=== PATIENT | female | born 1950 | race Caucasian/White ===

== ENCOUNTER → 2016-03-16 | Outpatient (CLI) | payer MEDICARE ==
[~2016-03-16] MED LIST: ASPI-586 PO; SIMV40TA2 PO
[2016-03-16 07:48] LABS: BASOPHILS % (AUTO) 0 % (0-2); EOSINOPHILS # (AUTO) 0.3 10^3uL; EOSINOPHILS % (AUTO) 3 % (0-4); LYMPHOCYTES # (AUTO) 2.9 X10^3; MEAN CORPUSCULAR HGB CONC 35.4 g/dL (31.0-37.0); MEAN CORPUSCULAR VOLUME 95 FL (80-100); MEAN PLATELET VOLUME 9.8 FL (6.0-9.5); MONOCYTES % (AUTO) 10 % (3-11); NEUTROPHILS # (AUTO) 6.2 X10^3; NEUTROPHILS % (AUTO) 59 % (51-67); PLATELET COUNT 305 10^3uL (150-450); WHITE BLOOD COUNT 10.47 10^3uL (4.0-11.0)
[2016-03-16 07:51] LABS: MEAN CORPUSCULAR HEMOGLOBIN 33.5 PG (26.0-34.0)
[2016-03-16 08:06] LABS: BILIRUBIN,URINE Negative (Negative); CLARITY,URINE Clear; COLOR,URINE Yellow; GLUCOSE, URINE (UA) Negative (Negative); LEUKOCYTE ESTERASE ,URINE Negative (Negative); UROBILINOGEN,URINE 0.2 mg/dL (0.2-1.0)
[2016-03-16 08:23] LABS: RBC,URINE 0-2 /HPF; URINE CENTRIFUGED VOLUME 12 mL
[2016-03-16 08:31] LABS: ALBUMIN 4.4 g/dL (3.4-5.0); CALCULATED IONIZED CALCIUM 4.1 mg/dL (3.8-4.6); TOTAL PROTEIN 7.6 g/dL (6.4-8.5)
--- NOTE | 2016-03-16 12:58 | Diagnostic Imaging Report ---
TECHNIQUE: Multiple real-time grayscale images were obtained over the carotid arteries in various projections bilaterally. Additional duplex Doppler and color Doppler images were also obtained. INDICATION: Right-sided endarterectomy in 2013. EXAMINATION: Ultrasound carotid Doppler 03/16/2016. FINDINGS: There are no significant areas of elevated velocities noted within the carotid ovaries with an IC to CC ratio of 0.9 on the right and 1.26 on the left. No hemodynamically significant stenosis is seen on either side. Scattered areas of plaque formation seen within the left proximal internal carotid artery. To a lesser degree, similar findings are noted within the external carotid ovary. Elevated velocity within the external carotid artery is noted with a velocity of 164 cm/s. IMPRESSION: No hemodynamically significant stenosis is appreciated. Dictated by: Dictated on workstation # [id number]
--- NOTE | 2016-03-16 14:16 | Diagnostic Imaging Report ---
INDICATION: Dyspnea. Two-view chest 03/16/2016. Comparison to 08/23/2014. FINDINGS: The heart and pulmonary vasculature appear stable. Mild emphysematous changes are seen within the lungs especially in the apices. Chronic-appearing changes noted in the lung bases. No infiltrates or effusions are seen. There is no pneumothorax. There is a vague density at the left lung base nonspecific perhaps caused by overlapping osseous and vascular structures. Short-term interval followup recommended. If this persists, CT imaging could help exclude a nodule. IMPRESSION: 1. Vague density left lung base. See above discussion and recommendations. Remaining changes appear chronic. Dictated by: Dictated on workstation # [id number]
--- NOTE | 2016-03-16 19:44 | Diagnostic Imaging Report ---
INDICATION: Screening mammogram dated 03/16/2016. COMPARISON: 07/24/2013 The current study was also evaluated with a Computer Aided Detection (CAD) system. FINDINGS: The breasts are composed of heterogeneously dense tissues which appear to be stable. There are a few bilateral calcifications which appear unchanged. There are no new suspicious microcalcifications appreciated. IMPRESSION: 1. Stable appearance of the breasts. No mammographic evidence for malignancy. Yearly screening is recommended. ACR BI-RADS Category 2: Benign findings. Result letter will be mailed to the patient. Note: At least 10% of breast cancer is not imaged by mammography. Dictated by: Dictated on workstation # [id number]
== END ==
LOC: RAD 07:34
PROVIDERS: ATTEND Family Medicine
DX: I49.8 Other specified cardiac arrhythmias (principal); Z12.31 Encounter for screening mammogram for malignant neoplasm of breast; R06.00 Dyspnea, unspecified; I70.311 Atherosclerosis of unspecified type of bypass graft(s) of the extremities with intermittent claudication, right leg; I65.21 Occlusion and stenosis of right carotid artery; R79.89 Other specified abnormal findings of blood chemistry; E78.2 Mixed hyperlipidemia; D50.8 Other iron deficiency anemias; N39.0 Urinary tract infection, site not specified; G72.0 Drug-induced myopathy; K71.2 Toxic liver disease with acute hepatitis; E03.4 Atrophy of thyroid (acquired); M81.0 Age-related osteoporosis without current pathological fracture; E13.65 Other specified diabetes mellitus with hyperglycemia; R91.8 Other nonspecific abnormal finding of lung field
CPT/HCPCS: 36415; 71020; 80053; 80061; 81003; 81015; 82360; 82550; 82977; 83036; 84436; 84443; 85025; 93005; 93880; G0202; 82306

== ENCOUNTER → 2016-06-11 | Outpatient (CLI) | payer MEDICARE ==
--- NOTE | 2016-06-11 14:02 | Diagnostic Imaging Report ---
INDICATION: Followup density from prior imaging.. TECHNIQUE: 2-view chest 10:10 AM. CORRELATION STUDY: 08/23/2014; 03/16/2016. FINDINGS: The heart size, mediastinal configuration and pulmonary vasculature are relatively stable and within normal limits. Previous noted density about the left lung base is still present, likely relatively stable from prior imaging. Definitive mass-type of appearance does not appear to be present. There is mild rightward curvature of the thoracic spine. IMPRESSION: Negative for acute abnormality of the chest. Previously questioned density in the left lung base, overall generally stable. This may very well reflect overlapping summation shadows. Would however recommend repeat chest radiograph be obtained in approximately four to six months. Dictated by: Dictated on workstation # [id number]
== END ==
LOC: RAD 09:59
PROVIDERS: ATTEND Family Medicine
DX: Z09 Encounter for follow-up examination after completed treatment for conditions other than malignant neoplasm (principal); J98.4 Other disorders of lung
CPT/HCPCS: 71020